=== PATIENT | male | born 1955 | race Caucasian/White ===

== ENCOUNTER 2018-10-31 06:39 | Day surgery (SDC) | payer BC ==
[~2018-10-31] VITALS: Ht 190.5 cm; Wt 181.4 kg
[~2018-10-31 06:39] MED LIST: ALEVE220 M1 PO; ANDROGEL150 GM TOP; ANDROGEL5 GM TOP; CELEBREX 200 M200 M1; ENOXAPARIN30 MG/0.3; GLUCOSAMINE &1 EAC1 PO; HYDROCHLOROTHIA25 M1 PO; LISINOPRIL-HCT1 EAC1 PO; MULTIVITAMINS PO; NAPROSYN500 MG PO; NORCO 10-325 T1 EACH PO; NORCO 5-325 TA1 EACH PO; NORVASC10 MG PO; PEPCID AC20 M1 PO; PEPCID AC20 MG PO; PERCOCET 10-321 EACH; PRINZIDE 20-121 EACH PO; TOPROL XL100 MG PO; TOPROL XL50 MG PO; VIAGRA50 MG PO; XARELTO10 MG PO; XOPENEX HF1 UDINHALE INH
[2018-10-31 07:15] VITALS: BP 131/68
[2018-10-31 07:45] LABS: CALCIUM 9.5 mg/dL (8.5-10.1); CREATININE 1.3 mg/dL (0.7-1.3); POTASSIUM 4.5 mmol/L (3.5-5.1)
[2018-10-31] MEDS ORDERED: NORCO 5-325 TA1 EAC1 PO (10:05)
[2018-10-31] MEDS ORDERED: ASPIR 8181 MG PO (10:06)
[2018-10-31] MEDS ORDERED: KEFLEX500 M1 PO (10:06)
[2018-10-31 18:16] VITALS: BP 131/68
--- NOTE | 2018-10-31 18:19 | NUR ---
PATIENT WAS OKAY TO DISCHARGE TO GO HOME WITH SELF-CARE.PT STATED THAT IT WAS OKAY FOR PATIENT TO GO HOME SAFELY.PT STATED THAT MINIMAL LEFT QUAD ACTIVATION BUT ABLE TO COMPENSATE FOR WALKING AND TRANSFERS WITHOUT LEFT KNEE BUCKLING.DRESSING IS INTACT, AND PATIENT HAS PAIN CONTROLED AT THIS TIME.ALL PRESCRIPTIONS WERE GIVEN DIRECTLY TO SPOUSE FROM SURGEON.PATIENT'S IV WILL BE TAKEN OUT, AND PT WILL BE TAKEN TO FAMILY CAR VIA W/C BY HOSPITAL PERSONNEL.
--- NOTE | 2018-11-02 07:36 | O ---
[facility] [place] [address] OPERATIVE REPORT Name: DANIEL LOPEZ [id number] Admission: 10/31/18 ������������������ Attend Phys: Charlie Bell MD Discharge: 10/31/18 ������������������ Date of : 57 Report #: [id number] THIS REPORT FOR: //name// CC: Charlie Moore DATE OF SERVICE: 10/31/2018 PREOPERATIVE DIAGNOSIS: Left total knee arthroplasty, polyethylene failure. POSTOPERATIVE DIAGNOSIS: Left total knee arthroplasty, polyethylene failure. PROCEDURE: Revision left total knee arthroplasty, polyethylene component only. SURGEON: Charlie Bell MD. IMPREGNATOR ELECTROLYTIC CAPACITORS: None. ANESTHESIA: LMA with an adductor canal block. IMPLANTS: [employer]hew size 5-6, 9 mm highly constrained polyethylene. TOURNIQUET TIME: 31 minutes. ESTIMATED BLOOD LOSS: 25 mL. COMPLICATIONS: None. SPECIMENS: None. CONDITION UPON LEAVING THE OPERATING ROOM: Stable. INDICATIONS FOR PROCEDURE: The patient is a 63-year-old gentleman who is about 7 years out from a left total knee arthroplasty. He has been doing well with his arthroplasty until Friday, he lifted and twisted his leg and felt a pop in his knee and has had anterior and posterior instability. He is having minimal pain associated with this. He presented to the office yesterday, x-ray was normal, but had a significant posterior drawer and subluxation with the knee at 90 degrees. It was felt that either his polyethylene had become dislodged or the post broken from the polyethylene. After discussion with him, he elected for left revision total knee arthroplasty with probable polyethylene exchange. DESCRIPTION OF PROCEDURE: Risks, benefits, alternatives, complications were discussed in detail with the patient including but not limited to risk of anesthesia; risk of damage to nerves, arteries, blood vessels; risk for [facility] [address] [place] [address] OPERATIVE REPORT Name: DANIEL LOPEZ Marcell Room #: [place] [facility] [place] [id number] Admission: 10/31/18 ������������������ Attend Phys: Charlie Bell MD Discharge: 10/31/18 ������������������ Date of : 57 Report #: [id number] infection, bleeding; risk for continued knee pain; and need for reoperation. Informed consent was obtained from the patient. The left knee was appropriately marked in the preoperative holding area. Adductor canal block was placed by Anesthesia. He was brought to the operating room and placed in the supine position on the operating room table. IV Ancef was given for preoperative antibiotics. LMA anesthesia was induced without complication. Tourniquet was placed on the left thigh. The left knee was then examined under anesthesia and at 90 degrees of flexion, he had significant posterior subluxation with posterior pressure. His varus valgus stability was normal. Left lower extremity was prepped and draped in normal sterile fashion. Timeout was performed, properly identifying the patient and procedure as well as the instrumentation and implants. All in the operating room were in agreement. The previous scar was excised and dissection was taken down to the fascia, deep flaps were developed medially and laterally. Fresh 10 blade was used to make a medial parapatellar arthrotomy and upon observing the joint, it was noted that the post of the polyethylene had sheared off and thus was creating the significant anterior, posterior instability of the knee. The polyethylene was removed and the knee was examined. The components appeared stable. The patellar component was stable. This was then trialed with a highly constrained size 9 polyethylene and knee was taken through range of motion, found to be stable, found to have good balance medially and laterally in flexion. Trial component was removed and final size 5-6, 9 mm highly constrained polyethylene was placed and seated. The knee was then examined again and found to have excellent stability anteriorly and posteriorly. The knee was thoroughly irrigated with normal saline. Tourniquet was deflated. Hemostasis was obtained with Bovie cautery. A periarticular injection consisting of morphine, ropivacaine, epinephrine and Toradol was placed around the knee joint capsule. A gram of vancomycin was placed deep in the joint. Fascia was closed with 0 Vicryl, skin was closed with 2-0 Vicryl and skin staple, and a MONICA dressing was applied. The patient tolerated this procedure well and went to recovery room under care of anesthesia postoperatively. ��������������������������������������������� <ELECTRONICALLY SIGNED> ���������������������������������������� By: Charlie Bell MD ��������������������������������������������� 11/02/18 0736 1034 1057 Charlie Bell MD /nt
--- NOTE | 2018-11-02 08:44 | EKG ---
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1955 Requested By: Jonnie Del Toro Order Number: [id number] MD: Cruz Raines Measurements Intervals [place] Rate: 57 P: 23 GA: 235 QRS: -22 QRSD: 113 T: -4 QT: 427 QTc: 416 Interpretive Statements Sinus bradycardia Prolonged GA interval Borderline intraventricular conduction delay Borderline T abnormalities Compared to ECG 10/02/2011 11:19:53 No significant change was found Electronically Signed On 11-02-2018 8:44:01 CDT by Cruz Raines [email or web address] ��������������������������������������������� <ELECTRONICALLY SIGNED> ���������������������������������������� By: Cruz Raines MD, [facility] ��������������������������������������������� 11/02/18 0844 8 8 Cruz Raines MD, [facility] /EPI
== END 2018-10-31 19:00 | disposition home health service (06) ==
LOC: OR 06:39 → TBA 08:48 → 4E 10:04 → OR 13:56
PROVIDERS: Anesthesiology
DX: T84.063A Wear of articular bearing surface of internal prosthetic left knee joint, initial encounter (principal); J45.909 Unspecified asthma, uncomplicated; G47.30 Sleep apnea, unspecified; I10 Essential (primary) hypertension; K21.9 Gastro-esophageal reflux disease without esophagitis; Z90.49 Acquired absence of other specified parts of digestive tract; Z96.653 Presence of artificial knee joint, bilateral; E66.01 Morbid (severe) obesity due to excess calories; Z98.890 Other specified postprocedural states; Z79.899 Other long term (current) drug therapy; Z79.82 Long term (current) use of aspirin; Y83.8 Other surgical procedures as the cause of abnormal reaction of the patient, or of later complication, without mention of misadventure at the time of the procedure
CPT/HCPCS: 10783; 50010; 50101; 50415; 50954; 51412; 53078; 54118; 55389; 56527; 56528; 57095; 57103; 57110; 57181; 62110; 62900; 64039; 70005

== ENCOUNTER 2018-10-31 22:47 | Inpatient (IN) | payer BC ==
[~2018-10-31] VITALS: Ht 190.5 cm; Wt 192.5 kg
[~2018-10-31 22:47] MED LIST changes: +ASPIR 8181 MG PO; +KEFLEX500 M1 PO; +NORCO 5-325 TA1 EAC1 PO
[2018-10-31 22:48] VITALS: BP 133/69
[2018-10-31 23:57] LABS: HEMATOCRIT 48.2 % (42.0-52.0); MCH 29.7 pg (26.0-34.0); MCHC 33.3 g/dL (28.0-37.0); MCV 89.1 fL (80.0-100.0); RBC 5.41 mil/uL (4.50-6.00); RDW 14.5 % (10.5-14.5); WBC 11.9 thou/uL (4.0-11.0)
[2018-11-01] VITALS (16 sets, daily range): BP systolic 107–1366; BP diastolic 61–74
[2018-11-01 00:05] LABS: CALCIUM 8.8 mg/dL (8.5-10.1); CREATININE 1.7 mg/dL (0.7-1.3); POTASSIUM 4.2 mmol/L (3.5-5.1)
--- NOTE | 2018-11-01 01:01 | NUR ---
PT TRANSFERRED TO INPATIENT BED IN ROOM ONE. SPOUSE AT BEDSIDE. PT SLEEPS WITH CPAP AT NIGHT. WAITING FOR RT TO PLACE ON
--- NOTE | 2018-11-01 02:26 | NUR ---
PT ARRIVED FROM ED APPROX. 0142. PT ALERT AND ORIENTED. ACCOMPANIED BY . ADMISSION COMPLETED. VSS. IV DRESSING C/D/I. REPORTS MINIMAL PAIN, DENIES N/V. CPAP HOOKED UP, ORDERS AKNOWLEDGED. FALL PRECAUTIONS IN PLACE. CALL LIGHT AND PERSONAL BELONGINGS WITHIN REACH. WILL CONTINUE POC UNTIL EOS.
--- NOTE | 2018-11-01 15:29 | NUR ---
Assumed care of pt at 0700. Pt alert and oriented x4. Orthopedic doctor saw pt at bedside and cleaned his left knee incision. Pt went down for I&D of left knee and evacuation of hematoma. Pt up to unit approx 1330. Vitals stable. Incision clean and intact. Pain controlled. Possible DC tomorrow after physical therapy.
[2018-11-02 03:37] VITALS: BP 118/75
--- NOTE | 2018-11-02 06:00 | NUR ---
A VERY DELIGHTFUL GENTLEMAN. LEFT KNEE DRESSING SITE INTACT WITH A MONICA DSG SITE IS SWOLLEN. PULSES INTACT. PAIN MED PRN. IN GOOD SPIRITS THIS AM REQUESTING COFFEE. WILL CONT TO MONITOR
--- NOTE | 2018-11-02 06:54 | O ---
[address] [address] OPERATIVE REPORT Name: DANIEL LOPEZ Room #: 419-P ADM IN M.R.#: [id number] Admission: 11/01/18 ������������������ Attend Phys: Yvan Pringle MD Discharge: ������������������ Date of : 57 Report #: [id number] THIS REPORT FOR: //name// CC: Yvan Moore DATE OF SERVICE: 11/01/2018 SERVICE: Orthopedics. FACILITY: [facility]. SURGEON: Jonnie Morales MD CRANE MANAGER: Bettina Pires NP INDICATIONS FOR CRANE MANAGER: Extremity positioning, retraction, access to the arthroplasty. PREOPERATIVE DIAGNOSES: 1. Left knee revision total knee arthroplasty. 2. Status post fall. 3. Left knee hematoma. POSTOPERATIVE DIAGNOSES: 1. Left knee revision total knee arthroplasty. 2. Status post fall. 3. Left knee hematoma. 4. Traumatic left knee arthrotomy. COMPLICATIONS: None. DRAINS: None. SPECIMENS: None. ANESTHESIA: General. FINDINGS: 1. A 1 inch traumatic rupture of the arthrotomy closure with hematoma. 2. Primary closure without undue tension. HISTORY: The patient is a gentleman who 1 day ago underwent a revision total knee arthroplasty with polyethylene exchange due to a broken post on his polyethylene tray. He was doing well, but went to the bathroom last night and lost his balance and fell and his legs gave way. He had a hyperflexion injury [address] [address] OPERATIVE REPORT Name: DANIEL LOPEZ Room #: 419-P ADM IN .R.#: [id number] Admission: 11/01/18 ������������������ Attend Phys: Yvan Pringle MD Discharge: ������������������ Date of : 57 Report #: [id number] and had immediate soaking of his dressing. He was admitted and then, we evaluated his wound first thing this morning. He continued to have bloody discharge and I felt that surgical treatment and exploration was most appropriate given his complicated history and he was in agreement. Risks, benefits, alternatives and indication of surgery discussed with him in detail. Risks include, but not limited to, pain, bleeding, infection, persistent wound healing difficulties, need for further surgery as well as complications related to anesthesia. Despite these risks, he wished to proceed. PROCEDURE IN DETAIL: After left lower extremity was correctly identified in the preoperative holding area as the operative extremity, the patient was taken to the operating room where general anesthesia was induced without complication. He was padded appropriately. Prophylactic antibiotics were administered at appropriate time. Tourniquet was applied to the left leg, but we did not use the tourniquet during the procedure. Left leg was prepped and draped in standard sterile fashion. Timeout procedure was performed. The staple line was removed and then, the 2-0 Vicryl skin closure was incised, opened the skin layer. There was noted to be hematoma present. Overall, the tissue quality was good, but there was evidence of rupture of 3 of the 0 Vicryl sutures on the distal aspect of the arthrotomy. This was then visualized and explored. The total knee replacement was stable and all components were intact. Three liters of saline was then lavaged through both the knee and along the soft tissues and then, hemostasis was achieved. After the irrigation and debridement of the hematoma down to the joint level was completed, I closed the traumatic arthrotomy with 0 Vicryl suture with [id number]-pd-tywse sutures and then, I used #2 Tevdek to perform a reinforcement running locking suture from the midpoint of the incision distally and then also from the midpoint of the incision proximally by utilizing 2 sutures. After this was completed, deep layer of 0 Vicryl suture was applied and then, skin was closed with 2-0 Vicryl followed by skin carlos and a sterile negative pressure dressing was applied followed by a compression wrap. The patient was awakened from anesthesia and taken to recovery room in stable condition. There were no complications. All counts were recorded as correct. ��������������������������������������������� <ELECTRONICALLY SIGNED> ���������������������������������������� By: Jonnie Morales MD ��������������������������������������������� 11/02/18 0654 1716 1906 Jonnie Morales MD /nt
[2018-11-02 07:11] LABS: CALCIUM 8.4 mg/dL (8.5-10.1); CREATININE 1.2 mg/dL (0.7-1.3); POTASSIUM 3.8 mmol/L (3.5-5.1)
[2018-11-02 07:56] VITALS: BP 143/78
[2018-11-02 10:17] LABS: HEMATOCRIT 44.8 % (42.0-52.0); HEMOGLOBIN 14.8 gm/dL (14.0-18.0); MCH 29.8 pg (26.0-34.0); MCHC 33.2 g/dL (28.0-37.0); MCV 89.9 fL (80.0-100.0); RBC 4.98 mil/uL (4.50-6.00); RDW 14.5 % (10.5-14.5); WBC 7.8 thou/uL (4.0-11.0)
[2018-11-02] MEDS ORDERED: XARELTO10 MG PO (13:48)
[2018-11-02 13:55] VITALS: BP 143/78
--- NOTE | 2018-11-02 15:06 | NUR ---
ASSUMED CARE OF PT AT 0700. ASSESSMENT CHARTED. A&O,X4. C/O LEFT KNEE PAIN WITH MOVEMENT, PO PAIN MEDS GIVEN ORDERED. PAIN WELL CONTROLLED. PT WALKED WITH P.T. AND WALKER TODAY. CPAP USE AT HOME. NO OTHER CONCERNS AT THIS TIME. WILL CONTINUE TO MONITOR.
--- NOTE | 2018-11-02 16:06 | NUR ---
ASSESSMENT-PT LIVES AT HOME WITH HIS WHO IS IN GOOD HEALTH AND ABLE TO ASSIST AT HOME. PT SAYS HIS SON IS INSTALLING A GRAB BAR AND PUTTING A NEW TOILET IN TODAY. IS GOING TO RENT A WC AND PURCHASE A 3:1 BSC FOR HOME USE. PT USES A C-PAP BUT NOT SURE WHAT CO SUPPLIES IT. BOTH PT AND DRIVE NORMALLY. PT HOPEFEUL TO GO BACK TO WORK TOMOROW. PT HAS A ROLLER WALKER AT HOME ALREADY.
== END 2018-11-02 15:38 | disposition home or self-care (01) | DRG 907 ==
LOC: ER 22:47 → 4E 11-01 00:47 → EROBS 11-01 00:47 → 4E 11-01 01:35 → ENTRNSPT 11-02 15:22 → 4E 11-02 15:38
PROVIDERS: Emergency Medicine; Nurse Practitioner Acute Care; ADMIT Internal Medicine
PROC: 0S9D0ZZ Drainage of Left Knee Joint, Open Approach (ICD-10-PCS; principal; 2018-11-01)
DX: T81.31XA Disruption of external operation (surgical) wound, not elsewhere classified, initial encounter (principal); N17.0 Acute kidney failure with tubular necrosis; L76.32 Postprocedural hematoma of skin and subcutaneous tissue following other procedure; Z68.43 Body mass index [BMI] 50.0-59.9, adult; I10 Essential (primary) hypertension; K21.9 Gastro-esophageal reflux disease without esophagitis; Y83.8 Other surgical procedures as the cause of abnormal reaction of the patient, or of later complication, without mention of misadventure at the time of the procedure; M19.90 Unspecified osteoarthritis, unspecified site; Z90.49 Acquired absence of other specified parts of digestive tract; E66.01 Morbid (severe) obesity due to excess calories; Z96.651 Presence of right artificial knee joint; J45.909 Unspecified asthma, uncomplicated; Z79.82 Long term (current) use of aspirin; Y92.89 Other specified places as the place of occurrence of the external cause; Z86.718 Personal history of other venous thrombosis and embolism
CPT/HCPCS: 10084; 10183; 50010; 50101; 50415; 51412; 53078; 56527; 56528; 57103; 57116; 57181; 62110; 62900; 70005

== ENCOUNTER 2018-11-14 16:08 | Emergency (ER) | payer BC ==
[~2018-11-14] VITALS: Ht 190.5 cm; Wt 186.0 kg
[2018-11-14 17:10] LABS: ABSOLUTE NEUTROPHILS 6.4 thou/uL (1.4-8.2); BASOPHILS 0.9 % (0.0-2.0); HEMOGLOBIN 15.7 gm/dL (14.0-18.0); LYMPHOCYTES 13.3 % (24.0-44.0); MCH 29.9 pg (26.0-34.0); MCHC 34.1 g/dL (28.0-37.0); MCV 87.7 fL (80.0-100.0); MONOCYTES 9.4 % (1.0-8.0); PLATELET COUNT 254 thou/uL (150-400); POLYS 69.4 % (36.0-66.0); RBC 5.24 mil/uL (4.50-6.00); RDW 14.2 % (10.5-14.5); WBC 9.2 thou/uL (4.0-11.0)
[2018-11-14 17:24] LABS: CALCIUM 9.2 mg/dL (8.5-10.1); CREATININE 1.5 mg/dL (0.7-1.3); POTASSIUM 3.8 mmol/L (3.5-5.1)
[2018-11-14] MEDS ORDERED: BACTRIM DS TAB1 EACH PO (17:53)
[2018-11-14 17:59] VITALS: BP 122/64
== END 2018-11-14 18:05 | disposition home or self-care (01) ==
LOC: ER 16:08
PROVIDERS: Physician Assistant
DX: T81.49XA Infection following a procedure, other surgical site, initial encounter (principal); L53.8 Other specified erythematous conditions; I10 Essential (primary) hypertension; K21.9 Gastro-esophageal reflux disease without esophagitis; J45.909 Unspecified asthma, uncomplicated; G47.30 Sleep apnea, unspecified; E66.01 Morbid (severe) obesity due to excess calories; Z96.653 Presence of artificial knee joint, bilateral; Z90.49 Acquired absence of other specified parts of digestive tract; Z68.43 Body mass index [BMI] 50.0-59.9, adult